=== PATIENT | female | born 1970 | race Caucasian/White ===

== ENCOUNTER 2019-01-02 10:37 | Day surgery (SDC) | payer BC ==
[~2019-01-02 10:37] MED LIST: Buffered Lidocaine 1% SYRIN* 1 ML/SYRINGE INTRADERM ONE; Lactated Ringers 1000 ML Bag* 1,000 ML IV SCH
[2019-01-02] MEDS ORDERED: ceFAZolin 2 GM in NS PREMIX(*) 2 GM/100 ML BAG IVPB ONE ×2 (10:48→11:18)
[2019-01-02] MEDS ORDERED: Lidocaine 1% MPF wEPI 200,000* 30 ML SDV ONE (12:23)
[2019-01-02] MEDS ORDERED: ROPIVACAINE 5 MG/ML 30 ML BTL (0.5%) ONE (12:24)
[2019-01-02] MEDS ORDERED: Dexamethasone IV* 4 MG/ML 1 ML (4 MG) ONE (12:39)
[2019-01-02] MEDS ORDERED: Midazolam* 1 MG/ML 5 ML VIAL (5 MG) ONE (12:39)
[2019-01-02] MEDS ORDERED: fentaNYL* 50 MCG/ML 2 ML VIAL (100 MCG VIAL) ONE ×2 (12:39→14:03)
[2019-01-02] MEDS ORDERED: Propofol* 10 MG/ML 20 ML BTL ONE (12:39)
[2019-01-02] MEDS ORDERED: oxyCODONE/Acetamin 5/325 MG* TAB PO PRN (13:31)
[2019-01-02] MEDS ORDERED: Acetaminophen TAB* 325 MG PO PRN (13:31)
[2019-01-02] MEDS ORDERED: Naloxone* 0.4 MG/ML 1 ML VIAL IV PRN (13:31)
[2019-01-02] MEDS ORDERED: Ondansetron INJ* 2 MG/ML VIAL IV PRN (13:31)
[2019-01-02] MEDS ORDERED: Ketorolac INJ* 30 MG/ML 1 ML VIAL ONE (13:47)
[2019-01-02] MEDS ORDERED: Ondansetron INJ* 2 MG/ML VIAL ONE (13:47)
[2019-01-02] MEDS: fentaNYL* 50 MCG/ML 2 ML VIAL (100 MCG VIAL) IV PRN ×2 (14:05→14:13)
[2019-01-02] MEDS ORDERED: oxyCODONE/Acetamin 5/325 MG* TAB ONE (14:28)
[2019-01-02 15:07] VITALS: BP 113/65
--- NOTE | 2019-01-02 20:47 | OP ---
CC: PCP, Lexa Pires MD * DATE OF OPERATION: 01/02/19 [facility] DATE OF : 66 SURGEON: Mo Soares MD WANIGAN CLERK: None available. ANESTHESIOLOGIST: Dr. Spring. ANESTHESIA: General. PRE-OP DIAGNOSIS: Right knee loose body with medial meniscus tear and chondrosis and chondral defect. POST-OP DIAGNOSIS: Right knee loose body with medial meniscus tear and chondrosis and chondral defect. OPERATIVE PROCEDURE: Right knee arthroscopy with: 1. Partial medial and lateral meniscectomy. 2. Removal of loose body x1. 3. Chondroplasty of the lateral femoral condyle and lateral plateau. INDICATIONS: Kendal Demarco is a 48-year-old female who presented with an acute knee injury in October. She has had persistent pain. She has a blocked motion. She had no previous injury. She presented with MRI demonstrating a medial meniscus tear with loose bodies and degenerative changes to the lateral meniscus as well as cartilage defect in the medial compartment. After extensive discussion of the risks and benefits of surgical treatment versus nonoperative treatment, she has elected proceed. DESCRIPTION OF PROCEDURE: The patient was greeted in the preoperative area by the attending surgeon. The correct extremity was marked and consent was confirmed. The patient was brought back to the operating suite where she was placed in supine position on the operating table, then underwent general anesthesia and LMA intubation, after which she was appropriately positioned in the bed. The lateral post was positioned. An unsterile tourniquet was placed high on the proximal thigh. The right leg then was prepped and draped in usual sterile fashion beginning with chlorhexidine soap, scrub, and alcohol wipe, and a final prep with ChloraPrep. After appropriate surgical pause indicating site, side, procedure, and administration of antibiotics, the knee was intra-articularly injected with 1% lidocaine with epi. The lateral portal was made using an 11-blade and the scope was brought and positioned in the joint. The anteromedial portal was made using 18- gauge needle for localization. The shaver was used to debride back the abundant significant synovitis that was present. There was evidence of ligamentum present. Electrocautery device was used to maintain hemostasis. The medial meniscus was obviously torn. There was chondral defect that was present in the medial femoral condyle in the weightbearing zone that was found to be about 1 cm x 1 cm, but this had already some good healing scarred cartilage there. This was a full-thickness defect, however. The Dryden portal was then done. The bone quality was somewhat poor, but the loose body was identified. This was then visualized and removed. The medial meniscus had unstable fraying with unstable flaps including one that had flipped back on itself. This was debrided back using the davie and biters to a stable layer. The knee was then placed in a [id number] position and there was unstable fraying of the root of the lateral meniscus. There were grade 1 to 2 changes of the plateau with some unstable fraying, which was debrided back. Lateral femoral condyle had grade 0 to 1 changes. The remainder of the meniscus was debrided back of the peripheral fraying. Knee was then placed in full extension. The patellofemoral joint had grade 0 to 1 changes. There was minimal amount of wear in the trochlea. The medial and lateral gutters were intact without any loose body, but there was a plica that was removed. The medial compartment was examined again and Dryden portal was examined as well and the loose body was gone. The knee was then thoroughly lavaged to remove any loose debris and tissue. The wounds were then copiously irrigated with sterile saline. The portals were closed with 3-0 nylon. The knee was intra- articularly injected with 0.2% ropivacaine. Sterile dressings were applied and Cryo/Cuff was applied. She was awoken from anesthesia and transferred to the PACU in stable condition. POSTOPERATIVE PLAN: She will be weightbearing as tolerated with crutches for the first 3 to 5 days. She will have range of motion as tolerated. She will be discharged on pain medications. DVT prophylaxis was considered, but deferred due to no previous personal or family history. I will see the patient back in 10 to 14 days. [id number]/[facility] #: [id number] ARMANDO
== END 2019-01-02 15:04 | disposition home or self-care (01) ==
LOC: OREAST 10:37
PROVIDERS: ATTEND Orthopaedic Surgery
DX: S83.241A Other tear of medial meniscus, current injury, right knee, initial encounter (principal); S83.281A Other tear of lateral meniscus, current injury, right knee, initial encounter; W00.0XXA Fall on same level due to ice and snow, initial encounter; Y92.89 Other specified places as the place of occurrence of the external cause; M93.861 Other specified osteochondropathies, right lower leg
CPT/HCPCS: 88304; A9270-GY; J0690; J1100; J1885; J2001; J2250; J2405; J2704; J2795; J3010

== ENCOUNTER 2019-03-13 09:04 | Day surgery (SDC) | payer BC, OTHER ==
[~2019-03-13 09:04] MED LIST changes: +Cyclopentolate 1% OPTH.SOL* 2 ML BTL ONE; +Dexamethasone IV* 4 MG/ML 1 ML (4 MG) IV SLOW PU ONE; +Dexamethasone IV* 4 MG/ML 1 ML (4 MG) ONE; +Famotidine IV* 10 MG/ML 2 ML (20 mg) IV ONE; +Famotidine IV* 10 MG/ML 2 ML (20 mg) ONE; +Ketorolac 0.5% OPHTH (NF) 0.5 % 5 ML BTL ONE; +Lidocaine 1%* 5 ML VIAL ONE; +Neomycin/Polymy/Dex OPHTH.OIN* 3.5 GM ONE; +Phenylephrine OPHTH SOL 2.5%* 2 ML ONE; +Povidone Iodine 5% OPTH* 30 ML BTL ONE; +Tetracaine 0.5% OPTH.SOL 4 ML* 1 DROP BTL ONE; +Tropicamide 1% OPTH.SOL* BTL ONE; +acetaZOLAMIDE TAB* 250 MG ONE
[2019-03-13] MEDS ORDERED: ceFAZolin 2 GM PREMIX in ORs 2 GM/50 ML BAG ONE (09:10)
[2019-03-13] MEDS ORDERED: fentaNYL* 50 MCG/ML 2 ML VIAL (100 MCG VIAL) ONE ×3 (10:34→12:44)
[2019-03-13] MEDS ORDERED: Midazolam* 1 MG/ML 2 ML VIAL (2 MG) ONE (10:34)
[2019-03-13] MEDS ORDERED: Lidocaine 1% MPF wEPI 200,000* 30 ML SDV ONE (11:03)
[2019-03-13] MEDS ORDERED: Ropivacaine 0.2% * 2 MG/ML VIAL ONE (11:03)
[2019-03-13] MEDS ORDERED: Naloxone* 0.4 MG/ML 1 ML VIAL IV PRN (11:10)
[2019-03-13] MEDS ORDERED: fentaNYL* 50 MCG/ML 2 ML VIAL (100 MCG VIAL) IV PRN (11:10)
[2019-03-13] MEDS ORDERED: DiMENhydriNATE IV* 50 MG/ML VIAL IV PUSH PRN (11:10)
[2019-03-13] MEDS ORDERED: Ondansetron INJ* 2 MG/ML VIAL ONE (11:15)
[2019-03-13] MEDS ORDERED: Ketorolac INJ* 30 MG/ML 1 ML VIAL ONE (11:15)
[2019-03-13] MEDS ORDERED: Propofol* 10 MG/ML 20 ML BTL ONE (11:15)
[2019-03-13] MEDS ORDERED: Lidocaine 2% PF * 5 ML VIAL ONE (11:15)
--- NOTE | 2019-03-13 13:47 | OP ---
CC: PCPDr. Pires * DATE OF OPERATION: 03/13/19 - [facility] DATE OF : 66 SURGEON: Mo Soares MD CASE COORDINATOR: None available. PRE-OP DIAGNOSIS: Right knee loose body. POST-OP DIAGNOSES: Right knee loose body with medial meniscus tear and significant scar tissue about the knee and chondrosis of the lateral plateau, medial compartment and the patella. OPERATIVE PROCEDURE: Right knee arthroscopy with: 1. Removal of loose body. 2. Partial medial meniscectomy. 3. Synovectomy of the anteromedial, lateral and patellar compartments. 4. Chondroplasty of the patellofemoral joint. COMPLICATIONS: None. ESTIMATED BLOOD LOSS: Minimal. IMPLANTS: None. INDICATIONS: Kendal Demarco is a 48-year-old female who underwent previous knee arthroscopy on 01/02/19 and then she presented on 01/27/19 after a fall down the stairs and had significant pain. She failed physical therapy. We sent her for an MRI. MRI diagnosed her with a loose body as well as a meniscus tear and some progressive arthritic changes. After extensive discussion of risks and benefits of surgical versus nonoperative treatment, she elected to proceed with surgical treatment. Risks and benefits included, but are not limited to bleeding; infection; damage to nerves, vessels, surrounding structures; wound nonhealing; persistent pain; need for surgery; scarring; stiffness; incomplete relief of symptoms; risks of anesthesia. She elected to proceed. DESCRIPTION OF PROCEDURE: The patient was greeted in the preoperative area by the attending surgeon. Correct extremity was marked and consent was confirmed. The patient was brought back to the operative suite where she was placed in supine position on the operating table. She then underwent general anesthesia and LMA intubation, after which she was slowly positioned in the bed. The lateral post was positioned. Unsterile tourniquet was placed high on the proximal thigh. The right leg was then prepped and draped in usual sterile fashion beginning with chlorhexidine soap, scrub, and alcohol wipe, and a final prep of ChloraPrep. An examination of the knee was done. There was an effusion. Range of motion was about 1 degree to 130 degrees. There was 1A Dmitry, negative posterior drawer, stable to varus and valgus stress. After appropriate surgical pause indicating side, site, and procedure, administration of antibiotics, the 11-blade was used to make an anterolateral incision. The scope was brought into the joint. There was significant scar tissue. It was difficult to mobilize around with the camera around and get into the joint. Once it was identified there was a large loose body greater than 1 cm which was adherent to the scar tissue, a medial incision centered over the loose body and just medial to the patellar tendon was then made. It was almost 2 cm in length. To remove this piece, it was moved in part with hemostat, but it was also adherent to the capsule. Shaver was used to debride this back and the patella was found to have significant rigidity. I was unable to get into the patellofemoral joint. There was significant scar tissue medially, laterally, inferiorly, infrapatellar all throughout. The medial portal was then widened even more and decision was made to not make a second incision for wound healing purposes as this is her second surgery there. The electrocautery device was used to remove the abundant scar tissue that was present all around the kneecap circumferentially to allow for the kneecap to mobilize better. The ACL had some obvious injury to it and erythema, but it was intact. The scope was positioned in the medial compartment after some of the soft tissue was released. There was previous osteochondral defect that was identified, it did not look any worse and had some scarred cartilage over it, but the medial plateau had worsening changes with grade 3 areas posteriorly. The previous partial meniscectomy had been visualized, but there were unstable flaps around this including a horizontal tear, which was debrided back using the davie and the biters. I then went back to trying to mobilize the kneecap using electrocautery device. Care was taken to remove the dense scar tissue all around the kneecap itself. This allowed visualization into the gutters. Medial and lateral gutters were intact without any loose debris. The knee was then placed in a [id number]-[id number] position. There were no new lateral meniscal changes. Lateral femoral condyle had grade 0 to 1 changes. Lateral plateau had grade 1 and 2 changes and mild fraying. The scope was then positioned into the suprapatellar pouch after it was mobilized. The chondral changes had significantly worsened since surgery, had larger areas of grade 2 changes, even the trochlea had some mild grade 1 to 2 wear. The knee was then thoroughly lavaged removing any loose debris. Hemostasis was obtained using electrocautery device. The wounds were copiously irrigated with sterile saline. The portals were closed with 3-0 nylon in interrupted fashion. The wounds and the knee were intra- articularly injected with 0.2% ropivacaine. Sterile dressings were applied and a Cryo/Cuff was applied. She was awoken from anesthesia and transferred to the PACU in stable condition. POSTOPERATIVE PLAN: She will be weightbearing as tolerated with crutches. Discharged on pain medication. DVT prophylaxis was considered, but deferred due to no previous personal or family history. I will see her back in 10 to 14 days. [id number]/[facility] #: [id number] ARMANDO
[2019-03-13 16:08] VITALS: BP 120/78
== END 2019-03-13 13:57 | disposition home or self-care (01) ==
LOC: OREAST 09:04
PROVIDERS: ATTEND Orthopaedic Surgery
DX: S83.241A Other tear of medial meniscus, current injury, right knee, initial encounter (principal); M93.861 Other specified osteochondropathies, right lower leg; W10.9XXA Fall (on) (from) unspecified stairs and steps, initial encounter; Y92.9 Unspecified place or not applicable; Z68.32 Body mass index [BMI] 32.0-32.9, adult
CPT/HCPCS: A9270-GY; J0690; J1100; J1885; J2001; J2250; J2405; J2704; J2795; J3010

== ENCOUNTER → 2019-08-16 05:37 | Day surgery (SDC) | payer BC, OTHER ==
[~2019-08-16 05:37] MED LIST changes: +Acetaminophen IV 1GM/100ML * 100 ML ONE; -Cyclopentolate 1% OPTH.SOL* 2 ML BTL ONE; -Dexamethasone IV* 4 MG/ML 1 ML (4 MG) IV SLOW PU ONE; +Dexmedetomidine* 200 MCG/2 ML 2 ML VIAL ONE; +DiMENhydriNATE IV* 50 MG/ML VIAL IV PUSH PRN; +DiMENhydriNATE IV* 50 MG/ML VIAL ONE; -Famotidine IV* 10 MG/ML 2 ML (20 mg) IV ONE; -Famotidine IV* 10 MG/ML 2 ML (20 mg) ONE; +HYDROmorphone INJ1* 1 MG/ML SYRINGE ONE; -Ketorolac 0.5% OPHTH (NF) 0.5 % 5 ML BTL ONE; +Ketorolac INJ* 30 MG/ML 1 ML VIAL ONE; -Lidocaine 1%* 5 ML VIAL ONE; +Lidocaine 2% PF * 5 ML VIAL ONE; +Metoclopramide IV* 5 MG/ML 2 ML VIAL ONE; +Midazolam* 1 MG/ML 2 ML VIAL (2 MG) ONE; +Naloxone* 0.4 MG/ML 1 ML VIAL IV PRN; -Neomycin/Polymy/Dex OPHTH.OIN* 3.5 GM ONE; +Ondansetron INJ* 2 MG/ML VIAL ONE; -Phenylephrine OPHTH SOL 2.5%* 2 ML ONE; -Povidone Iodine 5% OPTH* 30 ML BTL ONE; +Propofol* 10 MG/ML 20 ML BTL ONE; +ROPIVACAINE 5 MG/ML 30 ML BTL (0.5%) ONE; +Ropivacaine 0.2% * 2 MG/ML VIAL ONE; -Tetracaine 0.5% OPTH.SOL 4 ML* 1 DROP BTL ONE; +Tranexamic Acid 1,000 MG in NS 0.9% 50 ML* (outpatient use) IV SCH; -Tropicamide 1% OPTH.SOL* BTL ONE; -acetaZOLAMIDE TAB* 250 MG ONE; +ceFAZolin 2 GM in NS PREMIX(*) 2 GM/100 ML BAG IVPB ONE; +fentaNYL* 50 MCG/ML 2 ML VIAL (100 MCG VIAL) ONE; +oxyCODONE TAB* 5 MG TAB PO PRN
--- OUTSIDE RECORDS SUMMARY | 2019-08-16 05:40 | XMS REPORT | Continuity of Care Document ---
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 Social History Type Date Description Comments Sex Unknown ETOH Use Rarely consumes alcohol Tobacco Use Start: Unknown Patient has never smoked Recreational Drug Use Never Used Drugs Smoking Status Reviewed: 07/11/19 Patient has never smoked Exercise Type/Frequency Exercises sporadically Exercise Type/Frequency Walks sporadically Allergies, Adverse Reactions, Alerts Description No Known Drug Allergies Medications Active Medications SIG Qnty Indications Ordering Provider Date Diclofenac Sodium take 1 tablet 60tabs M23.41 Mo Soares MD 02/14/2019 75mg twice a day with Tablets DR food Ibuprofen 2 tabs by mouth Unknown 200mg every 6 hours as Capsules needed History Medications Oxycodone-Acetaminophen 1 tabs by 20tabs Mo Soares, 03/13/2019 - 5-325mg Tablets mouth every MD 03/26/2019 4-6 hours as needed for pain Cephalexin take 1 by 12tabs Mo Soares, 03/13/2019 - 500mg Tablets mouth four MD 03/26/2019 times a day x 3 days Immunizations Description No Information Available Vital Signs Date Vital Result Comment 07/11/2019 8:34am Height 66 inches 5'6" Weight 212.00 lb Heart Rate 84 /min BP Systolic 112 mmHg BP Diastolic 74 mmHg Body Temperature 98.2 F Pain Level 3 BMI (Body Mass Index) 34.2 kg/m2 06/15/2019 11:16am Height 66 inches 5'6" Weight 212.00 lb Heart Rate 73 /min BP Systolic 122 mmHg BP Diastolic 78 mmHg Body Temperature 97.8 F Pain Level 3 BMI (Body Mass Index) 34.2 kg/m2 Results Description No Information Available Procedures Date Code Description Status 03/13/2019 52290 Arthroscopy,Knee,Meniscectomy Medial Or Lateral Completed Medical Devices Description No Information Available Encounters Type Date Location Provider Dx Diagnosis Office Visit [facility]2019 [facility] M93.261 Osteochondritis 11:15a at [place] MD acuña, right knee Office Visit 05/23/2019 [facility] Soares M93.261 Osteochondritis 3:00p at [place] dissecans, right knee 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, right knee Office Visit 02/14/2019 8:15a [facility], M23.41 Loose body in at [place] knee, right knee S83.241A Oth tear of medial meniscus, current injury, r knee, init Office Visit 01/27/2019 [facility] Soares, S89.91xA Unspecified 11:30a [facility] at [place] injury of right [place] lower leg, initial encounter M25.561 Pain in right knee M25.461 Effusion, right knee M23.41 Loose body in knee, right knee Assessments Date Code Description Provider 06/15/2019 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, right knee Mo Soares MD 05/23/2019 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, right knee Mo Soares MD 05/23/2019 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, right knee Mo Soares MD 04/25/2019 S83.241D Other tear of medial meniscus, current injury, Mo Soares MD right knee, s 03/23/2019 M23.41 Loose body in knee, right knee Mo Soares MD 03/23/2019 S83.241D Other tear of medial meniscus, current injury, Mo Soares MD right knee, s 03/23/2019 M23.41 Loose body in knee, right knee Mo Soares MD 03/13/2019 M23.41 Loose body in knee, right knee Mo Soares MD 03/13/2019 S83.241A Other tear of medial meniscus, current injury, Mo Soares MD right knee, i 02/23/2019 M23.41 Loose body in knee, right knee Mo Soares MD 02/20/2019 M23.41 Loose body in knee, right knee Mo Soares MD 02/20/2019 S83.241A Other tear of medial meniscus, current injury, Mo Soares MD right knee, initial encounter 02/14/2019 M23.41 Loose body in knee, right knee Mo Soares MD 02/14/2019 S83.241A Other tear of medial meniscus, current injury, Mo Soares MD right knee, i 01/27/2019 S89.91xA Unspecified injury of right lower leg, initial Mo Soares MD encounter 01/27/2019 M25.561 Pain in right knee Mo Soares MD 01/27/2019 M25.461 Effusion, right knee Mo Soares MD 01/27/2019 M23.41 Loose body in knee, right knee Mo Soares MD 01/13/2019 M23.41 Loose body in knee, right knee Mo Soares MD 01/13/2019 M25.461 Effusion, right knee Mo Soares MD 01/13/2019 S83.241D Oth tear of medial meniscus, current injury, r Mo Soares MD knee, subs 01/13/2019 S83.281D Oth tear of lat mensc, current injury, right Mo Soares MD knee, subs Plan of Treatment Future Appointment(s):07/25/2019 1:45 pm - Mo Soares MD at [facility] at [place] Functional Status Description No Information Available Mental Status Description No Information Available Referrals Description No Information Available
--- OUTSIDE RECORDS SUMMARY | 2019-08-16 05:40 | XMS REPORT | Continuity of Care Document ---
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 MDD 10 Diclofenac Sodium take 1 tablet 60tabs M23.41 Mo Soares MD 02/14/2019 75mg twice a day with Tablets DR food Ibuprofen 2 tabs by mouth Unknown 200mg every 6 hours as Capsules needed History Medications Oxycodone-Acetaminophen 1 tabs by 20tabs Mo Yaseen, 03/13/2019 - 5-325mg Tablets mouth every MD 03/26/2019 4-6 hours as needed for pain Cephalexin take 1 by 12takaiser Soares, 03/13/2019 - 500mg Tablets mouth four MD 03/26/2019 times a day x 3 days Immunizations Description No Information Available Vital Signs Date Vital Result Comment 07/25/2019 1:39pm Height 66 inches 5'6" Weight 212.00 lb Heart Rate 71 /min BP Systolic 138 mmHg BP Diastolic 82 mmHg Body Temperature 97.5 F Pain Level 3 BMI (Body Mass Index) 34.2 kg/m2 07/11/2019 8:34am Height 66 inches 5'6" Weight 212.00 lb Heart Rate 84 /min BP Systolic 112 mmHg BP Diastolic 74 mmHg Body Temperature 98.2 F Pain Level 3 BMI (Body Mass Index) 34.2 kg/m2 Results Description No Information Available Procedures Date Code Description Status 03/13/2019 29875 Arthroscopy,Knee,Meniscectomy Medial Or Lateral Completed Medical Devices Description No Information Available Encounters Type Date Location Provider Dx Diagnosis Office Visit 07/11/2019 [facility] Mo Soares M93.261 Osteochondritis 8:30a at [place] MD acuña, right knee S83.241D Oth tear of medial meniscus, current injury, r knee, subs Office Visit 06/15/2019 [facility] M93.261 Osteochondritis 11:15a Orthopedics at [place] arianne Soares, right [place] knee Office Visit 05/23/2019 [facility] M93.261 Osteochondritis 3:00p [facility] at [place] arianne Soares, right [place] knee 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, right knee Office Visit 02/14/2019 8:15a [facility] Mo Soares, M23.41 Loose body in at [place] knee, right knee S83.241A Oth tear of medial meniscus, current injury, r knee, init Office Visit 01/27/2019 [facility] Soares S89.91xA Unspecified 11:30a Orthopedics at injury of right [place] lower leg, initial encounter M25.561 Pain in right knee M25.461 Effusion, right knee M23.41 Loose body in knee, right knee Assessments Date Code Description Provider 07/25/2019 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, right knee Mo Soares MD 07/25/2019 S83.241D Other tear of medial meniscus, current injury, Mo Soares MD right knee, s 07/11/2019 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, right knee Mo Soares MD 07/11/2019 S83.241D Other tear of medial meniscus, current injury, Mo Soares MD right knee, s 06/15/2019 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, right knee Mo [...] in knee, right knee Mo Soares MD Plan of Treatment Future Appointment(s):08/25/2019 10:45 am - Mo Soares MD at [facility] at Fhafmf2308/16/2019 8:30 am - Mo Soares MD at [facility] at [id number]/25/2019 - Mo Soares, MD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, right kneeS83.241D Other tear of medial meniscus, current injury, right knee, sNew Therapy:Physical TherapyFollow up:Follow up: 10-14 days post op Functional Status Description No Information Available Mental Status Description No Information Available Referrals Description No Information Available
[2019-08-16] MEDS: HYDROmorphone INJ1* 1 MG/ML SYRINGE IV PRN ×4 (11:13→11:52)
--- NOTE | 2019-08-16 12:51 | OP ---
DATE OF OPERATION: 08/16/19 - ROOM #AA-1 DATE OF : 66 SURGEON: Mo Soares MD TECHNOLOGY INFUSION SPECIALIST: MADELAINE Mejia. An fleet assistant was needed for the entirety of the case to help with positioning, retraction, and was utilized throughout all portions of the case. ANESTHESIOLOGIST: Dr. Calzada. ANESTHESIA: General with saphenous block. PRE-OP DIAGNOSIS: Right knee medial compartment osteoarthritis. POST-OP DIAGNOSIS: Right knee medial compartment osteoarthritis. OPERATIVE PROCEDURE: Right knee medial uncompartmental arthroplasty with NAVIO assistance. COMPLICATIONS: None. ESTIMATED BLOOD LOSS: Minimal. TOURNIQUET TIME: 120 minutes. IMPLANTS USED: [employer] ZUK knee, size 3 right medial tibial component with an 8 mm poly, and a size D femoral component. INDICATIONS: Kendal Demarco is a 49-year-old female who had a chondral injury and underwent surgery, and went back to work and underwent a work- related injury where she had persistent pain, worsening of the chondral lesion. She had a partial previous meniscectomy and incompetent meniscus. The medial compartment had some advanced degenerative changes with osteophytes. After extensive discussion of the risks and benefits of operative versus nonoperative treatment, she elected to proceed with surgical treatment. Risks included but not limited to bleeding; infection; damage to nerves, vessels, surrounding structures; wound nonhealing; persistent pain; need surgery; scaring; stiffness ; incomplete relief of symptoms; and risks of anesthesia. She has elected to proceed. DESCRIPTION OF PROCEDURE: The patient was greeted in the preoperative area by the attending surgeon. Correct extremity was marked. Consent was confirmed. The patient was brought back to the operating suite. She was placed in the supine position on the operating room table. The patient underwent saphenous nerve block by the anesthesiologist. The patient was properly positioned on the bed. Unsterile tourniquet was placed high at the proximal thigh. Lateral post was positioned and a bump was placed to keep the knee at 90 degrees. Her right leg was then prepped and draped in the usual sterile fashion beginning with chlorhexidine soap, scrub, and alcohol wipe, and a final prep with ChloraPrep. After appropriate surgical pause indicating site, side, procedure, and administration of antibiotics, a medial parapatellar approach was then made using a 10 blade. Soft tissues were carefully dissected to expose the extensor tendon mechanism and tendon. A medial parapatellar arthrotomy was then made with an 11 blade sharply. The soft tissues were carefully exposed. There was abundant scar tissue around the portal site from her previous partial meniscectomy. The excess scar tissue was then carefully removed. The medial soft tissues were carefully elevated and the cob was used to gently identify and protect the MCL which was protected throughout the entirety of the case with Z retractor. The bent Hohmann retractor was then used against the condyle to expose the full condyle and sublux the patella. The patellar had no lateral wear and the lateral compartment was intact. The ACL and PCL were intact. There were evidence of grade 3 changes to the medial condyle and evidence of meniscus tear as well as a tibial wear. The check points were then placed in the femoral and tibial guide through separate incisions. The proximal femoral pins were drilled bicortically to place the tracking device on the femoral side and then on the tibial side through the anteromedial aspect of the tibia, separate from the incision. At this point the NAVIO was used to check alignment tracking as well as varus and valgus stress as well as hip rotation. Once this was done, the mapping of the condyle was then done using the probe. After this was done, the tibia was marked in a similar fashion. The planning software was used to design and plan for the appropriate components. Once the rotation gap balancing and the plan was decided, the ar was then used to ar the positions for the femoral and tibial footprints. The edges were then carefully rasped as well and the fuel pilot engineer holes were drilled. Once the appropriate alignment was secured and the approximate fit was adjusted the size D femoral component, size 3 tibial component, +8 poly were then placed. The knee was taken through range of motion and was appropriately balanced. It was stable to varus valgus stress. Once the final determination was identified and range of motion was found to be 0 to 120 degrees the final implants were then chosen. The trials were then removed, the wounds were then copiously irrigated with sterile saline. The cement was mixed in the back table and the final implants were open. After the cement was mixed the components were impacted into position and the trial poly was placed until the cement was cured to make sure that the +8 was fitting appropriately. After this was secured, the final poly was placed with excellent purchase. The knee was then irrigated again. The separate stab incision were closed with 3-0 Monocryl and 0 nylon. The wound was closed in layers after it was thoroughly irrigated to remove any loose debris and cement. The extensor mechanism was closed with #1 Vicryl in an interrupted fashion. Skin was closed in layers with 3-0 Monocryl and 3-0 nylon in a running fashion. The sterile dressings were applied. Prior to closing the capsule, it was injected with about 8 cc of 0.2% ropivacaine and then superficially the medial wound was injected with the remainder, a total of 20 cc was injected of 0.2% ropivacaine. Sterile dressing were applied. A Cryo/ Cuff was applied. She was awoken from anesthesia and transferred to PACU in stable condition. POSTOPERATIVE PLAN: She will be potentially discharged today from PACU. She will begin working with Therapy prior to discharge. If her pain is controlled and she is comfortable, we will let her go. She will receive 24 hours of oral or IV antibiotics. She will be discharged on pain medication. DVT prophylaxis will be aspirin due to no previous personal or family history. I will see the patient back in 10 to 14 days. [id number]/CPS #: [id number] MTDD
[2019-08-16 15:08] VITALS: BP 123/87
== END | disposition home or self-care (01) ==
LOC: AA 05:37 → UNDOADMIN 05:37 → OR 05:37 → EDSTATUS 13:15
PROVIDERS: ATTEND Orthopaedic Surgery
DX: M17.31 Unilateral post-traumatic osteoarthritis, right knee (principal); M93.261 Osteochondritis dissecans, right knee; G89.18 Other acute postprocedural pain; M51.36 Other intervertebral disc degeneration, lumbar region
CPT/HCPCS: C1776; J0690; J1100; J1170; J1240; J1885; J2250; J2405; J2704; J2765; J2795; J3010